=== PATIENT | male | born 2000 | race Caucasian/White ===

== ENCOUNTER 2023-04-26 21:36 | Emergency (ER) | payer OTHER, SELFPAY ==
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
[2023-04-26 21:51] VITALS: BP 134/56; BP 174/100; PULSE 120; PULSE 94; RESP 18; TEMP 36.8; O2SAT 98; BMI 50.5
[2023-04-26 22:24] LABS: MANUAL DIFF FLAG NO
[2023-04-26 22:25] LABS: Basophils Percent Auto 0.4 % (0-2); Eosinophils Absolute Auto 0.2 X10*3/uL (0.0-0.4); Eosinophils Percent Auto 2.2 % (0-4); Hematocrit 48.5 % (42.0-52.0); Imm Gran Abs Auto 0.06 X10*3/uL (0.00-0.03); Imm Gran Pct Auto 0.8 % (0.0-0.4); Lymphocytes Absolute Auto 2.6 X10*3/uL (1.2-4.9); Lymphocytes Percent Auto 32.9 % (20-40); Mean Corpuscular HGB Conc 35.1 g/dl (31.0-36.0); Mean Corpuscular Hemoglobin 31.2 pg (27.0-33.0); Mean Platelet Volume 9.6 fL (9.4-12.4); Monocytes Absolute Auto 0.5 X10*3/uL (0.1-1.2); Monocytes Percent Auto 6.6 % (2-11); Neutrophils Absolute Auto 4.5 x10*3/uL (2.0-8.3); Neutrophils Percent Auto 57.1 % (45-73); Platelet Count 214 X10*3/uL (160-400); Red Blood Count 5.45 X10*6/uL (4.60-5.80); Red Cell Distribution Width 12.7 % (11.0-16.0); White Blood Count 7.9 X10*3/uL (4.8-10.8)
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
[2023-04-26 22:35] LABS: INTERNATIONAL NORM RATIO 1.4 (0.9-1.1)
[2023-04-26 22:43] LABS: Ethanol 221 mg/dL
[2023-04-26 22:45] LABS: Alanine Aminotransferase 71 U/L (0-40); Albumin Level 4.4 g/dL (3.5-5.0); Alkaline Phosphatase 77 U/L (39-117); Anion Gap 16 (12-20); Aspartate Amino Transferase 64 U/L (5-37); Bilirubin Total 0.8 mg/dL (0.0-1.0); Blood Urea Nitrogen 10 mg/dL (9-16); Calcium 9.3 mg/dL (8.4-10.2); Carbon Dioxide 23 mmol/L (22-29); Chloride 107 mmol/L (96-108); Estimated Glomerular Filt Rate > 60; Glucose Random 96 mg/dL (60-115); Potassium 3.9 mmol/L (3.3-5.1); Sodium 142 mmol/L (135-145); Total Protein 8.7 g/dL (6.5-8.0)
[2023-04-27 00:16] VITALS: BP 162/86; PULSE 81; RESP 20; TEMP 36.8; O2SAT 96
[2023-04-27] MEDS: Diphth,Pertus(ACell),Tet Adult 0.5 ML SYRINGE IM (01:25)
[2023-04-27] MEDS: Bacitracin Oint 0.9 GM PACKET 2 APPL TOPICAL (01:26)
[2023-04-27] MEDS: Lidocaine HCl 1 % MPF 5 ML VIAL SUBCUT (01:27)
[2023-04-27 01:45] VITALS: BP 137/75; PULSE 76; RESP 23; TEMP 36.9; O2SAT 97
== END 2023-04-27 02:22 | disposition home or self-care (01) ==
PROVIDERS: Nurse Practitioner Family; Emergency Provider Internal Medicine
DX: S06.0XAA Concussion with loss of consciousness status unknown, initial encounter (principal); S81.011A Laceration without foreign body, right knee, initial encounter; V43.52XA Car driver injured in collision with other type car in traffic accident, initial encounter; Y93.89 Activity, other specified; Y92.410 Unspecified street and highway as the place of occurrence of the external cause; Y99.9 Unspecified external cause status; Z23 Encounter for immunization
CPT/HCPCS: 12002; 36415; 70450; 71250; 72125; 73564; 74176; 80053; 80307; 85025; 85610; 90471; 90715; 99284